=== PATIENT | female | born 1965 | race Caucasian/White ===

== ENCOUNTER → 2016-10-08 | Outpatient (CLI) | payer BC ==
[2016-10-08 14:01] LABS: ALT 31 U/L (9-52); AST 21 U/L (14-36)
[2016-10-08 14:16] LABS: Basophils % (A) 0 %; CH 31.8; CHCM 34.6; Eosinophils # (A) 0.1 k/uL (0-0.7); Eosinophils % (A) 2 %; HCT 37.9 % (34.0-46.0); HDW 2.58; HGB 12.8 gm/dL (11.4-16.0); Luc # (Auto) 0.09; Luc % (Auto) 2; Lymphocytes # (A) 1.2 k/uL (1.0-4.8); Lymphocytes % (A) 25 %; MCH 31.2 pg (25.0-35.0); MCHC 33.8 g/dL (31.0-37.0); MCV 92.3 fL (80.0-100.0); Mean Platelet Volume 6.7; Monocytes # (A) 0.3 k/uL (0-1.0); Monocytes % (A) 7 %; Neutrophils % (A) 64 %; RBC 4.11 m/uL (3.80-5.40); RDW 13.1 % (11.5-15.5); WBC 4.7 k/uL (3.8-10.6); WBC (Perox) 4.48
[2016-10-08 14:32] LABS: Hepatitis B Surface Ag Index 0.06
[2016-10-08 14:38] LABS: Hepatitis B Core IgM Index 0.03
[2016-10-08 15:52] LABS: Hepatitis C Virus IgG Ab Negative (Negative); Hepatitis C Virus IgG Index 0.01
== END | disposition home or self-care (01) ==
LOC: LABWHC1 13:14
PROVIDERS: ATTEND Nurse Practitioner Family
DX: G35 Multiple sclerosis (principal)
CPT/HCPCS: 36415; 80074; 82784; 84450; 84460; 85025

== ENCOUNTER → 2016-11-18 | Outpatient (CLI) | payer BC ==
[2016-11-18 13:30] LABS: ALT 27 U/L (9-52); AST 19 U/L (14-36); Alkaline Phosphatase 52 U/L (38-126); Anion Gap 9 mmol/L; Basophils % (A) 1 %; Blood Urea Nitrogen 16 mg/dL (7-17); CHCM 33.3; Calcium 9.5 mg/dL (8.4-10.2); Carbon Dioxide 30 mmol/L (22-30); Chloride 103 mmol/L (98-107); Cholesterol 181 mg/dL (<200); Eosinophils # (A) 0.1 k/uL (0-0.7); Eosinophils % (A) 2 %; Glucose 90 mg/dL (74-99); HDL Cholesterol 64 mg/dL (40-60); HDW 2.47; HGB 12.3 gm/dL (11.4-16.0); Luc # (Auto) 0.09; Luc % (Auto) 2; Lymphocytes % (A) 20 %; MCH 31.2 pg (25.0-35.0); MCHC 32.3 g/dL (31.0-37.0); MCV 96.5 fL (80.0-100.0); Mean Platelet Volume 6.8; Monocytes # (A) 0.4 k/uL (0-1.0); Monocytes % (A) 8 %; Neutrophils # (A) 3.3 k/uL (1.3-7.7); Neutrophils % (A) 67 %; Non-African American GFR(MDRD) >60 (>60 ml/min/1.73 sqM); Potassium 4.2 mmol/L (3.5-5.1); RBC 3.93 m/uL (3.80-5.40); RDW 13.1 % (11.5-15.5); Sodium 142 mmol/L (137-145); Total Bilirubin 0.5 mg/dL (0.2-1.3); Total Protein 6.7 g/dL (6.3-8.2); WBC 4.8 k/uL (3.8-10.6); WBC (Perox) 4.88
== END | disposition home or self-care (01) ==
LOC: LABWHC1 12:37
PROVIDERS: ATTEND Internal Medicine
DX: Z13.9 Encounter for screening, unspecified (principal)
CPT/HCPCS: 36415; 80053; 80061; 84439; 84443; 85025

== ENCOUNTER → 2018-05-10 | Outpatient (CLI) | payer BC ==
--- NOTE | 2018-05-10 13:56 | MM ---
Reason for exam: screening (asymptomatic). Last mammogram was performed 3 years and 4 months ago. History: Patient has history of high-risk lesion on a previous biopsy at age 36. Family history of breast cancer in mother at age 56. Retro-pectoral saline implants in both breasts, 2006. Quadrectomy of the right breast, May 28, 2002. High risk stereotactic core biopsy of the right breast, May 07, 2002. Physical Findings: A clinical breast exam by your physician is recommended on an annual basis and results should be correlated with mammographic findings. MG 3D Diag Mammo Imp W/Cad MARITZA Bilateral CC, MLO, and ID view(s) were taken. Prior study comparison: January 13, 2015, bilateral MG 3d diag mammo imp w/cad MARITZA. February 12, 2013, CAD bilateral diagnostic mammogram. The breast tissue is extremely dense which could obscure a lesion on mammography. Stable diffuse calcifications bilaterally. Bilateral implants are intact. Stable post operative changes in the right breast. No significant new findings when compared with previous films. These results were verbally communicated with the patient and result sheet given to the patient on 05/10/18. ASSESSMENT: Benign, BI-RAD 2 RECOMMENDATION: Routine screening mammogram of both breasts in 1 year.
== END ==
LOC: RADMAMWWP 12:38
PROVIDERS: ATTEND Internal Medicine
DX: Z09 Encounter for follow-up examination after completed treatment for conditions other than malignant neoplasm (principal); Z98.82 Breast implant status
CPT/HCPCS: 77062; 77066

== ENCOUNTER → 2018-05-16 | Outpatient (CLI) | payer BC ==
[2018-05-16 19:14] LABS: Cholesterol 195 mg/dL (0-200); Triglycerides <50.0 mg/dL (0.0-149.0); VLDL Calculation 9.98 mg/dL (5.00-40.00)
== END | disposition home or self-care (01) ==
LOC: LABWHC1 12:02
PROVIDERS: ATTEND Internal Medicine
DX: E78.49 Other hyperlipidemia (principal)
CPT/HCPCS: 36415; 80061

== ENCOUNTER 2019-07-30 15:19 | Inpatient (IN) | payer BC ==
--- NOTE | 2019-07-30 15:48 | ED ---
Weakness HPI - General Chief complaint: Weakness Stated complaint: Weakness Time Seen by Provider: 07/30/19 15:31 Source: patient, EMS, RN notes reviewed, old records reviewed Mode of arrival: EMS Limitations: no limitations - History of Present Illness Initial comments: This is a 53-year-old female with MS patient presents today with weakness difficulty getting out of bed secondary to weakness after feeling fine last night she has noted feels feverish and a little water with no sick contacts no travel history, patient denying any significant cough congestion sore throat shortness of breath rash no nausea vomiting or diarrhea. Patient does have MS but has not had any MS issues and some time. No recent her no hospital admissions for any issues related to MS. Patient's neurologist is from [place]. Patient takes no significant medications. Aside from being weak and fever she has no other real significant complaints of chest pain or shortness of breath MD Complaint: generalized weakness, lack of energy -: hour(s) Location: generalized Severity: moderate Severity scale (1-10): 7 Quality: aching Improves with: none Worsens with: none Context: recent illness (Patient has fever today), history of similar (History of MS) Associated Symptoms: fever/chills, loss of appetite - Related Data Home Medications Medication Instructions Recorded Confirmed Dextroamphetamine/Amphetamine 20 mg PO QAM 07/30/19 07/30/19 [Adderall Xr] Dimethyl Fumarate [Tecfidera] 240 mg PO BID 07/30/19 07/30/19 HYDROcodone/APAP 10-325MG [[place] 1 tab PO QID PRN 07/30/19 07/30/19 10-325] Tolterodine [Detrol] 2 mg PO BID 07/30/19 07/30/19 Zolpidem [Ambien] 10 mg PO HS 07/30/19 07/30/19 Allergies Allergy/AdvReac Type Severity Reaction Status Date / Time nitrofurantoin Allergy Diarrhea Verified 07/30/19 16:49 [From Macrobid] Review of Systems ROS Statement: Those systems with pertinent positive or pertinent negative responses have been documented in the HPI. ROS Other: All systems not noted in ROS Statement are negative. Past Medical History Past Medical History: Musculoskeletal Disorder Additional Past Medical History / Comment(s): MS History of Any Multi-Drug Resistant Organisms: None Reported Past Surgical History: Hysterectomy Smoking Status: Never smoker Past Alcohol Use History: None Reported Past Drug Use History: None Reported General Exam - General Exam Comments Initial Comments: NIH is 0 Limitations: no limitations General appearance: alert, in no apparent distress Head exam: Present: atraumatic, normocephalic, normal inspection Eye exam: Present: normal appearance, PERRL, EOMI. Absent: scleral icterus, conjunctival injection, periorbital swelling ENT exam: Present: normal exam, mucous membranes moist Neck exam: Present: normal inspection. Absent: tenderness, meningismus, lymphadenopathy Respiratory exam: Present: normal lung sounds bilaterally. Absent: respiratory distress, wheezes, rales, rhonchi, stridor Cardiovascular Exam: Present: normal rhythm, tachycardia, normal heart sounds. Absent: systolic murmur, diastolic murmur, rubs, gallop, clicks GI/Abdominal exam: Present: soft, normal bowel sounds. Absent: distended, tenderness, guarding, rebound, rigid Extremities exam: Present: normal inspection, full ROM, normal capillary refill. Absent: tenderness, pedal edema, joint swelling, calf tenderness Back exam: Present: normal inspection Neurological exam: Present: alert, oriented X3, CN II-XII intact Psychiatric exam: Present: normal affect, normal mood Skin exam: Present: warm, dry, intact, normal color. Absent: rash Course Vital Signs 07/30/19 07/30/19 07/30/19 15:24 18:56 20:17 Temperature 100.3 F H 100.0 F H 99.3 F Pulse Rate 111 H 102 H 102 H Respiratory 16 18 18 Rate Blood Pressure 106/68 110/68 107/66 O2 Sat by Pulse 97 98 98 Oximetry - Reevaluation(s) Reevaluation #1: 07/30/19 20:32 Medical record is reviewed Reevaluation #2: 07/30/19 20:32 Improvement of symptoms here in the ER Reevaluation #3: 07/30/19 20:32 Informed of results questions are answered - Consultations Consultation #1: Spoke with sound were agreeable for admission EKG Findings - EKG Comments: EKG Findings:: EKG shows sinus tachycardia rate of 113 NH 120 QRS 80 QTc 455 Medical Decision Making - Medical Decision Making 53 female DF for evaluation patient presents today for evaluation of weakness and not feeling well she does have fever of unknown origin, patient be admitted for rule out bacteremia rule out covert as well as monitoring of MS. Patient with neurology consult - Lab Data Result diagrams: 07/30/19 15:44 07/30/19 15:44 Lab Results 07/30/19 07/30/19 07/30/19 Range/Units 15:44 15:44 15:44 WBC 7.0 (3.8-10.6) k/uL RBC 3.92 (3.80-5.40) m/uL Hgb 12.1 (11.4-16.0) gm/dL Hct 36.8 (34.0-46.0) % MCV 93.8 (80.0-100.0) fL MCH 30.8 (25.0-35.0) pg MCHC 32.8 (31.0-37.0) g/dL RDW 12.8 (11.5-15.5) % Plt Count 231 (150-450) k/uL Neutrophils % 92 % Lymphocytes % 2 % Monocytes % 5 % Eosinophils % 1 % Basophils % 0 % Neutrophils # 6.4 (1.3-7.7) k/uL Lymphocytes # 0.2 L (1.0-4.8) k/uL Monocytes # 0.3 (0-1.0) k/uL Eosinophils # 0.1 (0-0.7) k/uL Basophils # 0.0 (0-0.2) k/uL PT 9.6 (9.0-12.0) sec INR 0.9 (<1.2) APTT 19.6 L (22.0-30.0) sec D-Dimer 0.86 H (<0.60) mg/L FEU Sodium 137 (137-145) mmol/L Potassium 4.1 (3.5-5.1) mmol/L Chloride 106 (98-107) mmol/L Carbon Dioxide 23 (22-30) mmol/L Anion Gap 8 mmol/L BUN 22 H (7-17) mg/dL Creatinine 0.42 L (0.52-1.04) mg/dL Est GFR (CKD-EPI)AfAm >90 (>60 ml/min/1.73 sqM) Est GFR (CKD-EPI)NonAf >90 (>60 ml/min/1.73 sqM) Glucose 106 H (74-99) mg/dL Plasma Lactic Acid Martin (0.7-2.0) mmol/L Calcium 9.1 (8.4-10.2) mg/dL Phosphorus 3.0 (2.5-4.5) mg/dL Magnesium 2.0 (1.6-2.3) mg/dL Total Bilirubin 0.7 (0.2-1.3) mg/dL AST 21 (14-36) U/L ALT 13 (4-34) U/L Alkaline Phosphatase 58 (38-126) U/L Lactate Dehydrogenase 362 (313-618) U/L C-Reactive Protein 17.8 H (<10.0) mg/L Total Protein 6.5 (6.3-8.2) g/dL Albumin 4.0 (3.5-5.0) g/dL Urine Color Urine Appearance (Clear) Urine pH (5.0-8.0) Ur Specific [place] (1.001-1.035) Urine Protein (Negative) Urine Glucose (UA) (Negative) Urine Ketones (Negative) Urine Blood (Negative) Urine Nitrite (Negative) Urine Bilirubin (Negative) Urine Urobilinogen (<2.0) mg/dL Ur Leukocyte Esterase (Negative) 07/30/19 07/30/19 Range/Units 15:44 16:01 WBC (3.8-10.6) k/uL RBC (3.80-5.40) m/uL Hgb (11.4-16.0) gm/dL Hct (34.0-46.0) % MCV (80.0-100.0) fL MCH (25.0-35.0) pg MCHC (31.0-37.0) g/dL RDW (11.5-15.5) % Plt Count (150-450) k/uL Neutrophils % % Lymphocytes % % Monocytes % % Eosinophils % % Basophils % % Neutrophils # (1.3-7.7) k/uL Lymphocytes # (1.0-4.8) k/uL Monocytes # (0-1.0) k/uL Eosinophils # (0-0.7) k/uL Basophils # (0-0.2) k/uL PT (9.0-12.0) sec INR (<1.2) APTT (22.0-30.0) sec D-Dimer (<0.60) mg/L FEU Sodium (137-145) mmol/L Potassium (3.5-5.1) mmol/L Chloride (98-107) mmol/L Carbon Dioxide (22-30) mmol/L Anion Gap mmol/L BUN (7-17) mg/dL Creatinine (0.52-1.04) mg/dL Est GFR (CKD-EPI)AfAm (>60 ml/min/1.73 sqM) Est GFR (CKD-EPI)NonAf (>60 ml/min/1.73 sqM) Glucose (74-99) mg/dL Plasma Lactic Acid Martin 0.6 L (0.7-2.0) mmol/L Calcium (8.4-10.2) mg/dL Phosphorus (2.5-4.5) mg/dL Magnesium (1.6-2.3) mg/dL Total Bilirubin (0.2-1.3) mg/dL AST (14-36) U/L ALT (4-34) U/L Alkaline Phosphatase (38-126) U/L Lactate Dehydrogenase (313-618) U/L C-Reactive Protein (<10.0) mg/L Total Protein (6.3-8.2) g/dL Albumin (3.5-5.0) g/dL Urine Color Yellow Urine Appearance Clear (Clear) Urine pH 6.0 (5.0-8.0) Ur Specific [place] 1.024 (1.001-1.035) Urine Protein Negative (Negative) Urine Glucose (UA) Negative (Negative) Urine Ketones 2+ H (Negative) Urine Blood Negative (Negative) Urine Nitrite Negative (Negative) Urine Bilirubin Negative (Negative) Urine Urobilinogen <2.0 (<2.0) mg/dL Ur Leukocyte Esterase Negative (Negative) - Radiology Data Radiology results: report reviewed (Chest x-ray and CT chest negative for acute disease), image reviewed Disposition Clinical Impression: Fever, Weakness, Exacerbation of multiple sclerosis Disposition: ADMITTED IP TO THIS HOSP Condition: Good Is patient prescribed a controlled substance at d/c from ED?: No Referrals: Carmelita Figueroa MD [Primary Care Provider] - 1-2 days
[2019-07-30 15:52] LABS: Basophils % (A) 0 %; Eosinophils # (A) 0.1 k/uL (0-0.7); Eosinophils % (A) 1 %; HCT 36.8 % (34.0-46.0); HGB 12.1 gm/dL (11.4-16.0); Lymphocytes # (A) 0.2 k/uL (1.0-4.8); Lymphocytes % (A) 2 %; MCH 30.8 pg (25.0-35.0); MCHC 32.8 g/dL (31.0-37.0); MCV 93.8 fL (80.0-100.0); Mean Platelet Volume 6.9; Monocytes # (A) 0.3 k/uL (0-1.0); Monocytes % (A) 5 %; Neutrophils # (A) 6.4 k/uL (1.3-7.7); Neutrophils % (A) 92 %; Platelet Count 231 k/uL (150-450); RBC 3.92 m/uL (3.80-5.40); RDW 12.8 % (11.5-15.5)
[2019-07-30 16:04] LABS: ALT 13 U/L (4-34); AST 21 U/L (14-36); African American GFR (CKD) >90 (>60 ml/min/1.73 sqM); Alkaline Phosphatase 58 U/L (38-126); Anion Gap 8 mmol/L; Blood Urea Nitrogen 22 mg/dL (7-17); C Reactive Protein 17.8 mg/L (<10.0); Calcium 9.1 mg/dL (8.4-10.2); Carbon Dioxide 23 mmol/L (22-30); Chloride 106 mmol/L (98-107); Glucose 106 mg/dL (74-99); LDH 362 U/L (313-618); Non-African American GFR(CKD) >90 (>60 ml/min/1.73 sqM); Potassium 4.1 mmol/L (3.5-5.1); Sodium 137 mmol/L (137-145); Total Bilirubin 0.7 mg/dL (0.2-1.3); Total Protein 6.5 g/dL (6.3-8.2)
[2019-07-30 16:10] LABS: Appearance,Urine Clear (Clear); Bilirubin,Urine Negative (Negative); Blood,Urine Negative (Negative); Color,Urine Yellow; Glucose,Urine (UA) Negative (Negative); Ketones,Urine 2+ (Negative); Leukocyte Esterase,Urine Negative (Negative); Nitrite,Urine Negative (Negative); Protein,Urine Negative (Negative); Specific Gravity,Urine 1.024 (1.001-1.035); Urobilinogen,Urine <2.0 mg/dL (<2.0)
[2019-07-30 16:20] LABS: INR 0.9 (<1.2); Prothrombin Time 9.6 sec (9.0-12.0)
[2019-07-30 16:25] LABS: D-Dimer 0.86 mg/L FEU (<0.60); Partial Thromboplastin Time 19.6 sec (22.0-30.0)
--- NOTE | 2019-07-30 16:33 | XR ---
EXAMINATION TYPE: XR chest 1V portable DATE OF EXAM: 07/30/2019 COMPARISON: None HISTORY: Weakness, suspected Covid 19 pneumonia TECHNIQUE: Single frontal view of the chest is obtained. FINDINGS: There is no focal air space opacity, pleural effusion, or pneumothorax seen. The cardiac silhouette size is within normal limits. The osseous structures are intact, possible mild spinal cu rvature, patient is rotated. IMPRESSION: No acute process.
[2019-07-30] MEDS ORDERED: MORPHINE SULFATE 4 MG/ML SYRINGE IVP STA (17:03)
[2019-07-30] MEDS ORDERED: DEXAMETHASONE SOD PHOSPHATE 10 MG/ML 1 ML VIAL IV STA (17:03)
--- NOTE | 2019-07-30 18:18 | CT ---
EXAMINATION TYPE: CT angio chest DATE OF EXAM: 07/30/2019 COMPARISON: None HISTORY: Fever, weakness, elevated d-dimer. CT DLP: 259 mGycm Automated exposure control for dose reduction was used. CONTRAST: Performed with IV Contrast, patient injected with 100 mL of Isovue 370. There are 3-D post processed images. There is no mediastinal adenopathy. There are no hilar masses. Heart size is normal. There is no kin cardial effusion. There is significant retained fecal material in the visualized colon. There is no p leural effusion. There is normal contrast opacification of the pulmonary arteries. There are no filling defects. There is some mild pleural thickening in the posterior lung [place] bilaterally. There is no evidence of a pulmonary mass. The bony thorax is intact. IMPRESSION: No evidence of pulmonary embolism. Minimal posterior pleural thickening in the mid lung car[place].
[2019-07-30] MEDS ORDERED: ACETAMINOPHEN TAB 325 MG TAB PO STA (18:49)
[2019-07-30] MEDS: SODIUM CHLORIDE 0.9% 500 ML 500 ML IV SCH ×3 (21:00→21:45)
[2019-07-30] MEDS: SODIUM CHLORIDE 0.9% 1,000 ML IV SCH (21:01)
[2019-07-31] MEDS: ACETAMINOPHEN TAB 325 MG TAB PO PRN ×2 (00:57→08:14)
[2019-07-31 01:03] LABS: Ferritin 88.8 ng/mL (10.0-291.0)
--- NOTE | 2019-07-31 03:37 | P.HPIM ---
History of Present Illness H&P Date: 07/31/19 The patient is a 54-year-old female with a PMH of MS (stable for several years, with no recent exacerbations) who presented to the ED with complaints of abdominal pain and headache. The patient notes that she was in her usual state of health until earlier on day of presentation when she gradually developed of diffuse mild abdominal pain. She reports the pain was nonradiating, with associated nausea, with no clear alleviating or exacerbating features. She denied associated vomiting or diarrhea. She notes that at the same time, she also developed a diffuse 9 out of 10 headache, aching in nature, which subsequently gradually improved. At time of interview, she notes that her headache has improved with 3 out of 10. She reports that earlier today, she also felt that her chronic right leg weakness and stiffness was somewhat worsened, though had returned to baseline by the time of interview. She notes feeling somewhat feverish at home though denied dysuria, cough, visual disturbances, or dizziness. She underwent an extensive evaluation in the emergency room with chest CTA that was unremarkable with EKG showing sinus a cardiac 1 13 bpm. Laboratory evaluation revealed WBC count 7.0, hemoglobin 12.1, platelet is 231, sodium 137, potassium 4.1, BUN 22, creatinine 0.42, glucose 106, and lactic acid low at 0.6. Review of Systems Pertinent positives and negatives as discussed in HPI, a complete review of systems was performed and all other systems are negative. Past Medical History Past Medical History: Musculoskeletal Disorder Additional Past Medical History / Comment(s): MS History of Any Multi-Drug Resistant Organisms: None Reported Past Surgical History: Hysterectomy, Uterine Ablation Past Anesthesia/Blood Transfusion Reactions: No Reported Reaction Past Psychological History: No Psychological Hx Reported Smoking Status: Never smoker Past Alcohol Use History: None Reported Past Drug Use History: None Reported Medications and Allergies Home Medications Medication Instructions Recorded Confirmed Type Dextroamphetamine/Amphetamine 20 mg PO QAM 07/30/19 07/30/19 History [Adderall Xr] Dimethyl Fumarate [Tecfidera] 240 mg PO BID 07/30/19 07/30/19 History HYDROcodone/APAP 10-325MG [[place] 1 tab PO QID PRN 07/30/19 07/30/19 History 10-325] Tolterodine [Detrol] 2 mg PO BID 07/30/19 07/30/19 History Zolpidem [Ambien] 10 mg PO HS 07/30/19 07/30/19 History Allergies Allergy/AdvReac Type Severity Reaction Status Date / Time nitrofurantoin Allergy Diarrhea Verified 07/30/19 16:49 [From Macrobid] Physical Exam Vitals: Vital Signs Temp Pulse Pulse Resp BP BP Pulse Ox 07/30/19 21:49 99.5 F 97 18 106/66 97 07/30/19 20:17 99.3 F 102 H 18 107/66 98 07/30/19 18:56 100.0 F H 102 H 18 110/68 98 07/30/19 15:24 100.3 F H 111 H 16 106/68 97 Intake and Output 07/30/19 07/30/19 07/31/19 14:59 22:59 06:59 Output Total 350 Balance -350 Output: Urine 350 Other: # Voids 1 350 Weight 51.256 kg General: non toxic, no distress, appears at stated age, normal weight Derm: no unusual rashes/lesions no unusual ecchymoses, warm, dry Head: atraumatic, normocephalic, symmetric Eyes: EOMI, no lid lag, anicteric sclera, pupils equal round reactive to light ENT: Nose and ears atraumatic, no thrush, no pharyngeal erythema Neck: No thyromegaly, no cervical lymphadenopathy, trachea midline, supple Mouth: no lip lesion, mucus membranes moist Cardiovascular: S1S2 reg, no murmur, positive posterior tibial pulse bilateral, no edema, capillary refill less than 2 seconds Lungs: CTA bilateral, no rhonchi, no rales , no accessory muscle use Abdominal: soft, nontender to palpation, no guarding, no appreciable organomegaly, normal bowel sounds Ext: no gross muscle atrophy, muscle strength 5 out of 5 in all 4 extremities grossly, no contractures, Neuro: CN II-XI grossly intact, light touch intact all 4 extremities, right lower extremity strength 3+ out of 5 with right ankle impaired dorsiflexion, left lower extremity strength 4 out of 5 (both at baseline as per patient), Kernig's and Brudzinski's negative Psych: Alert, oriented, appropriate affect Results CBC & Chem 7: 07/30/19 15:44 07/30/19 15:44 Labs: Abnormal Lab Results - Last 24 Hours (Table) 07/30/19 07/30/19 07/30/19 Range/Units 15:44 15:44 15:44 Lymphocytes # 0.2 L (1.0-4.8) k/uL APTT 19.6 L (22.0-30.0) sec D-Dimer 0.86 H (<0.60) mg/L FEU BUN 22 H (7-17) mg/dL Creatinine 0.42 L (0.52-1.04) mg/dL Glucose 106 H (74-99) mg/dL Plasma Lactic Acid Martin (0.7-2.0) mmol/L C-Reactive Protein 17.8 H (<10.0) mg/L Urine Ketones (Negative) 07/30/19 07/30/19 Range/Units 15:44 16:01 Lymphocytes # (1.0-4.8) k/uL APTT (22.0-30.0) sec D-Dimer (<0.60) mg/L FEU BUN (7-17) mg/dL Creatinine (0.52-1.04) mg/dL Glucose (74-99) mg/dL Plasma Lactic Acid [place] 0.6 L (0.7-2.0) mmol/L C-Reactive Protein (<10.0) mg/L Urine Ketones 2+ H (Negative) Thrombosis Risk Factor Assmnt - Choose All That Apply Each Factor Represents 1 point: Age 41-60 years Thrombosis Risk Factor Assessment Total Risk Factor Score: 1 Thrombosis Risk Factor Assessment Level: Low Risk Assessment and Plan Plan: Fever, abdominal pain, possibly viral gastroenteritis -Hold off on antibiotics at this time -Full liquid diet and advance as tolerated Headache, significantly improved -Possibly due to dehydration and poor oral intake -Continue to monitor for now -Tylenol when necessary Multiple sclerosis, at baseline -Continue with home med Tecfidera Prerenal azotemia due to dehydration -Continue with IV fluids -Monitor BMP DVT prophylaxis -Lovenox The patient is admitted with an anticipated less than 2 midnight stay for evaluation of fever CODE STATUS: Full Code Discussed with: Patient Anticipated discharge date: 1-[address]: Home A total of 35 minutes was spent on the care of this complex patient more than 50% of the time was spent in counseling and care coordination.
[2019-07-31] MEDS: SODIUM CHLORIDE 0.9% 1,000 ML IV SCH ×3 (04:34→19:34)
[2019-07-31] MEDS: ENOXAPARIN 40 MG/0.4 ML SYRINGE SQ SCH (08:08)
[2019-07-31] MEDS: DEXTROAMPHETAMINE PO SCH (11:43)
[2019-07-31] MEDS: AMPHETAMINE PO SCH (11:43)
[2019-07-31] MEDS ORDERED: NON FORMULARY DRUG (Dimethyl Fumarate [Tecfidera] 240 MG) PO SCH (11:45)
[2019-07-31] MEDS: HYDROcodone/APAP 10-325MG 1 EACH TAB PO PRN ×2 (11:54→19:34)
[2019-07-31] MEDS: OXYBUTYNIN 10 MG TAB.ER.24 PO SCH (12:40)
[2019-07-31] MEDS ORDERED: DIMETHYL FUMARATE 240 MG PO SCH (21:00)
[2019-07-31] MEDS ORDERED: ZOLPIDEM 10 MG TAB PO SCH (21:00)
[2019-07-31] MEDS: DIMETHYL FUMARATE 240 MG PO SCH (21:21)
[2019-08-01] MEDS: SODIUM CHLORIDE 0.9% 1,000 ML IV SCH ×2 (02:38→12:31)
[2019-08-01 08:24] VITALS: BP 101/62; PULSE 86; RESP 16; TEMP 98.7
[2019-08-01] MEDS: AMPHETAMINE PO SCH (08:38)
[2019-08-01] MEDS: OXYBUTYNIN 10 MG TAB.ER.24 PO SCH (08:38)
[2019-08-01] MEDS: DIMETHYL FUMARATE 240 MG PO SCH (08:38)
[2019-08-01] MEDS: DEXTROAMPHETAMINE PO SCH (08:38)
[2019-08-01] MEDS: ENOXAPARIN 40 MG/0.4 ML SYRINGE SQ SCH (08:39)
[2019-08-01] MEDS: HYDROcodone/APAP 10-325MG 1 EACH TAB PO PRN (09:45)
--- NOTE | 2019-08-01 12:50 | P.DS ---
Providers Date of admission: 07/30/19 20:26 Expected date of discharge: 08/01/19 Attending physician: David Vivas MD [facility] Course: 54-year-old female with a PMH of MS (stable for several years, with no recent exacerbations) who presented to the ED with complaints of abdominal pain and headache. The patient notes that she was in her usual state of health until earlier on day of presentation when she gradually developed of diffuse mild abdominal pain. She reports the pain was nonradiating, with associated nausea, with no clear alleviating or exacerbating features. She denied associated vomi ting or diarrhea. She also developed a diffuse 9 out of 10 headache, aching in nature, which subsequently gradually improved. She reported that she also felt that her chronic right leg weakness and stiffness was somewhat worsened, though had returned to baseline upon presentation. She was feeling somewhat feverish at home though denied dysuria, cough, visual disturbances, or dizziness. She underwent an extensive evaluation in the emergency room with chest CTA that was unremarkable with EKG showing sinus a cardiac 1 13 bpm. Laboratory evaluation revealed WBC count 7.0, hemoglobin 12.1, platelet is 231, sodium 137, potassium 4.1, BUN 22, creatinine 0.42, glucose 106, and lactic acid low at 0.6. She was admitted for further evaluation and management. She was started on IV fluids. Antiemetics were provided as well as pain meds. She did well with that conservative management. Blood cx were negative. She improved, has been tolerating her diet well and today she is ready for discharge. She'll be discharged home in a stable condition. Time for discharge 35min Patient Condition at Discharge: Good Plan - Discharge Summary Discharge Rx Participant: Yes New Discharge Prescriptions: Continue Zolpidem [Ambien] 10 mg PO HS Tolterodine [Detrol] 2 mg PO BID HYDROcodone/APAP 10-325MG [[place] 10-325] 1 tab PO QID PRN PRN Reason: Pain Dimethyl Fumarate [Tecfidera] 240 mg PO BID Dextroamphetamine/Amphetamine [Adderall Xr] 20 mg PO QAM Discharge Medication List Dextroamphetamine/Amphetamine [Adderall Xr] 20 mg PO QAM 07/30/19 [History] Dimethyl Fumarate [Tecfidera] 240 mg PO BID 07/30/19 [History] HYDROcodone/APAP 10-325MG [[place] 10-325] 1 tab PO QID PRN 07/30/19 [History] Tolterodine [Detrol] 2 mg PO BID 07/30/19 [History] Zolpidem [Ambien] 10 mg PO HS 07/30/19 [History] Follow up Appointment(s)/Referral(s): Carmelita Figueroa MD [Primary Care Provider] - 1-2 days (office closed at time of discharge. Please call to make appointment) Activity/Diet/Wound Care/Special Instructions: HOME MED TECFIDERA IN MED ROOM!!!!!!!!!!!!!!!!!!!!
== END 2019-08-01 14:29 | disposition home or self-care (01) | DRG 392 ==
LOC: EC 15:19 → UNDOADMIN 20:26 → INTOOBSV 20:26 → OBSVTOIN 20:26 → 4SSUR 20:26 → UNDODISIN 08-01 14:29
PROVIDERS: ADMIT Internal Medicine; ATTEND Internal Medicine
DX: A08.4 Viral intestinal infection, unspecified (principal); E86.0 Dehydration; G35 Multiple sclerosis; R79.89 Other specified abnormal findings of blood chemistry; R51 Headache; Z20.828 Contact with and (suspected) exposure to other viral communicable diseases; Z90.710 Acquired absence of both cervix and uterus; Z79.899 Other long term (current) drug therapy; Z88.1 Allergy status to other antibiotic agents
CPT/HCPCS: 36415; 71045; 71275; 80053; 81003; 82728; 83605; 83615; 83735; 84100; 84145; 85025; 85379; 85610; 85730; 86140; 87040; 93005; 96374; 96375; 99285

== ENCOUNTER → 2019-11-02 | Outpatient (CLI) | payer BC ==
[2019-11-02 16:53] LABS: Basophils % (A) 1 %; Eosinophils # (A) 0.1 k/uL (0-0.7); Eosinophils % (A) 2 %; HCT 38.4 % (34.0-46.0); HGB 12.8 gm/dL (11.4-16.0); Lymphocytes # (A) 1.5 k/uL (1.0-4.8); Lymphocytes % (A) 28 %; MCH 31.7 pg (25.0-35.0); MCHC 33.4 g/dL (31.0-37.0); Monocytes # (A) 0.3 k/uL (0-1.0); Monocytes % (A) 5 %; Neutrophils # (A) 3.5 k/uL (1.3-7.7); Neutrophils % (A) 63 %; Platelet Count 284 k/uL (150-450); RBC 4.04 m/uL (3.80-5.40); WBC 5.6 k/uL (3.8-10.6)
[2019-11-03 01:27] LABS: African American GFR (CKD) 121.5 (60.0-200.0); Albumin 4.6 g/dL (3.80-4.90); Albumin/Globulin Ratio 2.3 (1.60-3.17); Anion Gap 8.9 mmol/L (4.00-12.00); BUN/Creat Ratio 31.67 Ratio (12.00-20.00); Calcium 9.6 mg/dL (8.7-10.3); Carbon Dioxide 29.1 mmol/L (21.6-31.8); Non-African American GFR(CKD) 104.8 (60.0-200.0); Potassium 3.6 mmol/L (3.5-5.5); Total Bilirubin 0.6 mg/dL (0.3-1.2); Total Protein 6.6 g/dL (6.2-8.2)
== END | disposition home or self-care (01) ==
LOC: LABWHC1 15:43
PROVIDERS: ATTEND Psychiatry & Neurology Neurology
DX: G35 Multiple sclerosis (principal); Z79.899 Other long term (current) drug therapy
CPT/HCPCS: 36415; 80053; 82306; 85025

== ENCOUNTER → 2021-04-10 | Outpatient (CLI) | payer BC ==
[2021-04-10 22:46] LABS: Basophils # (A) 0.03 X 10*3/uL (0.00-0.10); Basophils % (A) 0.4 %; Eosinophils # (A) 0.12 X 10*3/uL (0.04-0.35); Eosinophils % (A) 1.6 %; HCT 34.1 % (37.2-46.3); HGB 11.4 g/dL (12.0-15.0); Immature Grans, Automated 0.4 %; Lymphocytes # (A) 0.83 X 10*3/uL (0.90-5.00); Lymphocytes % (A) 11.1 %; MCH 31.6 pg (27.0-32.0); MCHC 33.4 g/dL (32.0-37.0); MCV 94.5 fL (80.0-97.0); Mean Platelet Volume 9.6 fL (9.5-12.2); Monocytes # (A) 0.57 X 10*3/uL (0.20-1.00); Monocytes % (A) 7.6 %; NRBC Per 100 WBC 0 /100 WBCS (0.0-0.0); Neutrophils % (A) 78.9 %; Platelet Count 252 X 10*3/uL (140-440); RBC 3.61 X 10*6/uL (4.10-5.20); RDW 12.5 % (11.5-14.5); WBC 7.48 X 10*3/uL (4.50-10.00)
[2021-04-10 23:12] LABS: African American GFR (CKD) 116.5 (60.0-200.0); Albumin 4.2 g/dL (3.8-4.9); Albumin/Globulin Ratio 2.05 (1.60-3.17); Anion Gap 11.4 mmol/L (10.00-18.00); BUN/Creat Ratio 32.13 Ratio (12.00-20.00); Blood Urea Nitrogen 21.4 mg/dL (9.0-27.0); Calcium 9.1 mg/dL (8.7-10.3); Carbon Dioxide 25.1 mmol/L (20.0-27.5); Non-African American GFR(CKD) 100.6 (60.0-200.0); Potassium 3.5 mmol/L (3.5-5.5); Total Bilirubin 0.2 mg/dL (0.30-1.20); Total Protein 6.2 g/dL (6.2-8.2)
== END | disposition home or self-care (01) ==
LOC: LABWHC1 15:42
PROVIDERS: ATTEND Psychiatry & Neurology Neurology
DX: G35 Multiple sclerosis (principal); R53.83 Other fatigue; M62.81 Muscle weakness (generalized); N31.9 Neuromuscular dysfunction of bladder, unspecified
CPT/HCPCS: 36415; 80053; 82306; 85025